=== PATIENT | male | born 1980 | race Caucasian/White ===

== ENCOUNTER 2016-08-25 19:05 | Emergency (ER) | payer SELFPAY ==
[2016-08-25] MEDS ORDERED: SODIUM CHLORIDE 0.9% 1,000 ML ONE (21:48)
[2016-08-25] MEDS ORDERED: CLINDAMYCIN PHOSPHATE 600 MG/4 ML VIAL ONE (21:48)
[2016-08-25] MEDS ORDERED: SODIUM CHLORIDE 0.9% 50 ML IV ONE (21:49)
[2016-08-25 22:02] LABS: ALB/GLOB RATIO 1.1 (>1.0); ALBUMIN 3.7 gm/dL (3.5-5.7); CALCIUM 9.3 mg/dL (8.6-10.3)
[2016-08-25 22:05] LABS: ABSOLUTE NEUTROPHIL COUNT 8.8 K/mm3 (1.8-7.7); BASO # 0.1 K/mm3 (0.0-0.2); BASO % 0.5 % (0.2-1.0); EOS # 0.4 (0.0-0.5); EOS % 3.2 % (0.9-2.9); HEMOGLOBIN 13.3 gm/l (14.0-18.0); IMM NEUT% 0.3 % (0-1); LYMPH # 2.4 (1.0-4.8); LYMPH % 19.6 % (15-45); MEAN CELL VOLUME 77.8 fl (80.0-94.0); MEAN CORPUSCULAR HEMOGLOBIN 25.9 pg (27.0-31.0); MEAN CORPUSCULAR HGB CONC 33.3 g/dl (33.0-37.0); MEAN PLATELET VOLUME 10.2 fl (7.4-10.4); MONO # 0.6 (0.0-0.8); MONO % 5.2 % (4-12); NEUT % 71.2 % (43-75); PLATELET COUNT 306 K/mm3 (130-400); RED CELL DISTRIBUTION WIDTH 13.7 % (11.5-14.5)
[2016-08-26] MEDS ORDERED: CIPROFLOXACIN 500 MG TABLET ONE (00:38)
[2016-08-26] MEDS ORDERED: HYDROCODONE/ACETAMINOPHEN 5/325MG TABLET ONE (01:01)
--- NOTE | 2016-08-26 07:52 | US ---
SCROTUM CONTENTS HISTORY: Right-sided testicular pain and swelling. COMPARISONS: None. FINDINGS: Testicular ultrasonography demonstrates symmetric size. The right testicle measures 5.1 x 2.5 x 3.1 cm. The left testicle measures 5.2 x 2.5 x 3.0 cm. There is flow within both testicles which appears to be symmetric. The left epididymis appears to be appropriate though a small 4 mm cyst is seen within the epididymal head. The right epididymis appears to be hypervascular, particularly evident within the epididymal tail. There is an area of increased echogenicity also observed which may be a component of the right epididymis. Superior to the right epididymis and testicle is a nonvascular area of decreased echogenicity measuring 1.8 x 1.7 x 1.0 cm. This is located at the site of a recent drainage procedure, per the patient. Significant and diffuse scrotal wall thickening is observed. IMPRESSION: 1. Asymmetric hypervascularity of the right epididymal tail suggestive of epididymitis. 2. A nonvascular low echogenicity 1.8 cm focus, superior and lateral to the right epididymis which may reflect a developing phlegmon/abscess. Per the patient, this is the site of recent drainage procedure. 3. Diffuse scrotal wall thickening. 4. Bilateral epididymal cysts or spermatoceles. 5. Symmetric testicular flow with no current findings of testicular torsion observed. The findings were called to the emergency room at 2308 hours, 08/25/2016, by [facility].
== END 2016-08-26 01:10 | disposition home or self-care (01) ==
LOC: ED 19:05
DX: N49.2 Inflammatory disorders of scrotum (principal)
CPT/HCPCS: 83605; 85025; 80053; 76870; 99284 ×2; 96361; 96365; A9270 ×2; J7030; J7050